=== PATIENT | female | born 1995 | race Caucasian/White ===

== ENCOUNTER 2017-05-18 15:53 | Emergency (ER) | payer OTHER ==
[2017-05-18] MEDS ORDERED: PENICILLIN V POTASSIUM 250 MG TABLET PO ONE (16:33)
[2017-05-18] MEDS ORDERED: KETOROLAC TROMETHAMINE 30 MG/ML VIAL ONE (16:33)
--- NOTE | 2017-05-18 17:02 | ER NURSING DOCUMENTATION ---
Nurse's Notes [facility] Name:Sravani Demarco Age:21 yrs Sex:Female :1995 Arrival Date:05/18/2017 Time:15:53 Bed4 Private MD:No PCP, Identified Diagnosis:Lip Laceration;Epileptic Seizure Presentation: 05/18 15:56 Presenting complaint: Patient states: pt has a seizure and had an uncontrolled fall to st the ground hitting her face and right side. pt complains of chin and right arm pain. Transition of care: patient was not received from another setting of care. 15:56 Acuity: VINICIUS 3 st 15:56 Method Of Arrival: Private Vehicle st Triage Assessment: 15:58 General: Appears uncomfortable, Behavior is agitated, cooperative. Pain: Complains of st pain in right arm and lower mimi border Pain currently is 5 out of 10 on a pain scale. Neuro: Level of Consciousness is awake, alert, Oriented to person, place, time, pt is baseline for her per family.. Cardiovascular: No deficits noted. Respiratory: No deficits noted. GI: No deficits noted. 15:58 Injury Description: Laceration sustained to lower mimi border threw the lip. st Historical: - Allergies: No known drug Allergies; - Home Meds: 1. Keppra Oral 2. Clonidine Oral - PMHx: ADHD; developmentaly delay; SEIZURES; - Tetanus: < 10 years. - Ebola Screening: : Patient denies exposure to infectious person. Patient denies travel to an Ebola-affected area in the 21 days before illness onset. . - Immunization history: Unable to Obtain. Screenin:59 Infectious Disease Risk None. Abuse screen: no reasons for suspicions noted. st Nutritional screening: No deficits noted. Vital Signs: 15:59 BP 138 / 97; Pulse 89; Resp 18; Pulse Ox 96% on R/A; Pain 5/10; st ED Course: 15:54 Patient arrived in ED. ds 15:54 No PCP, Identified is Private Physician. ds 15:56 Sera Monae, RN is Primary Nurse. st 15:[address] 16:00 Valuables Remains with patient Seizure precautions initiated. Seizure pads on bed close st monitoring by staff bedside monitoring initiated. 16:03 Simone Rice MD is Attending Physician. be 16:08 Assist Provider Assist provider with laceration repair using sutures. Set up tray. st Performed by Simone Rice MD. Wound care to laceration was Irrigation Normal Saline. Administered Medications: 16:24 Drug: Bacitracin Ointment (500 unit/g) 1 application; Route: Topical; Site: wound; st 16:24 Drug: Penicillin VK 1000 mg; Route: PO; st 16:24 Drug: Toradol 30 mg; Route: IVP; Site: left hand; st Outcome: 16:24 Discharge ordered by MD. be 16:50 Discharged to home ambulatory. st 16:50 Condition: improved 16:50 Instructed on discharge instructions, follow up and referral plans. medication usage. 17:01 IV D/[place] st 17:01 Patient left the ED. 07 11:29 Discharge F/U Call: Unable to reach: no answer 11:41 Discharge F/U Call: Spoke with: parent of minor. Signatures: Sera Monae RN RN st Srot, Berna, Reg Reg Simone Fisher MD MD be Hofsess, Rachel
--- NOTE | 2017-05-18 17:03 | ER PHYSICIAN DOCUMENTATION ---
Physician Documentation [facility] Name:Sravani Demarco Age:21 yrs Sex:Female :1995 Arrival Date:05/18/2017 Time:15:53 Bed4 Private MD:No PCP, Identified ED Simone You Disposition: 05/18/17 16:24 Discharged to Home/Self Care. Impression: Lip Laceration, Epileptic Seizure. - Condition is Good. - Discharge Instructions: LACERATION, How to Minimize Scar, LACERATION, Lip/Mouth, SEIZURE, Recurrent [Adult]. - Prescriptions for Amoxicillin 500 mg Oral Capsule - take 1 capsule by ORAL route every 8 hours for 10 days; 30 tablet. - Medical Reconciliation form form. - Follow up: Private Physician; When: 4- 6 days; Reason: If symptoms return, Staple/Suture removal. - Problem is new. - Symptoms have improved. HPI: 05/18 16:00 This 21 yrs old Female presents to ER via Private Vehicle with complaints of be Seizure. 16:00 The patient presents after having a single isolated seizure, that lasted 30 second(s). be Character of seizure(s): Motor activity: generalized, shaking all over. Seizure onset: just prior to arrival. Context: the seizure(s) was witnessed, by EMS personnel, by family, brother, father, mother, sister. Seizure Hx: Last seizure: The patient's last seizure was approximately 6 month(s) ago, titrated off Keppra in December, Seizure medications: Lamictal. Associated injury: Head/face: laceration, through and through lower lip laceration. EMS care: none. Current symptoms: confusion. The patient has experienced similar episodes in the past. The patient has been recently seen by a physician: the patient's primary care provider. Historical: - Allergies: No known drug Allergies; - Home Meds: 1. Keppra Oral 2. Clonidine Oral - PMHx: ADHD; developmentaly delay; SEIZURES; - Tetanus: < 10 years. - Ebola Screening: : Patient denies exposure to infectious person. Patient denies travel to an Ebola-affected area in the 21 days before illness onset. . - Immunization history: Unable to Obtain. ROS: 16:00 ENT: Positive for injury or acute deformity, laceration, of the lower mimi border.be 16:00 Neuro: Positive for altered mental status, seizure activity, Negative for headache, speech changes, tingling, weakness, acute changes. 16:00 All other systems are negative. Exam: 16:00 Constitutional: This is a well developed, well nourished patient who is awake, alert, be and in mild distress. Head/Face: Normocephalic, obvious through-through lower lip laceration Eyes: Pupils equal round and reactive to light, extra-ocular motions intact. Lids and lashes normal. Conjunctiva and sclera are non-icteric and not injected. Cornea within normal limits. Periorbital areas with no swelling, redness, or edema. ENT: Nares patent. No nasal discharge, no septal abnormalities noted. Tympanic membranes are normal and external auditory canals are clear. Oropharynx with no redness, swelling, or masses, exudates, or evidence of obstruction, uvula midline. Mucous membranes moist. Neck: Trachea midline, no thyromegaly or masses palpated, and no cervical lymphadenopathy. Supple, full range of motion without nuchal rigidity, or vertebral point tenderness. No Meningismus. Chest/axilla: Normal chest wall appearance and motion. Nontender with no deformity. No lesions are appreciated. Cardiovascular: Regular rate and rhythm with a normal S1 and S2. No gallops, murmurs, or rubs. Normal PMI, no JVD. No pulse deficits. Respiratory: Lungs have equal breath sounds bilaterally, clear to auscultation and percussion. No rales, rhonchi or wheezes noted. No increased work of breathing, no retractions or nasal flaring. Abdomen/GI: Soft, non-tender, with normal bowel sounds. No distension or tympany. No guarding or rebound. No evidence of tenderness throughout. 16:00 MS/ Extremity: Pulses equal, no cyanosis. Neurovascular intact. Full, normal range be of motion. 16:00 Neuro: Motor: is normal, no acute changes, moves all fours. 16:00 Psych: Exam negative for static encephalopathy, unchanged from baseline. Vital Signs: 15:59 BP 138 / 97; Pulse 89; Resp 18; Pulse Ox 96% on R/A; Pain 5/10; st Laceration: 16:00 Wound Repair of 5cm ( 2.0in ) subcutaneous laceration to lower mimi border. be Irregularly shaped.. through-through lower lip laceration, stellate shaped w/o FB, dentition intact.. Distal neuro/vascular/tendon intact. Anesthesia: Local anesthetic administered with 5 mls of 1% lidocaine. Wound prep: Simple cleansing with betadine, Wound explored moderately, Copious irrigation. Skin closed with 3 and 4-0 vicyrl mucousal x5 Prolene using Interrupted sutures. Dressed with Bacitracin, bandaid. Patient tolerated well. MDM: 16:00 Differential diagnosis: seizure. Neurological re-evaluation: normal neurological exam be including cranial nerves, orientation, mentation, motor and sensory exam, cerebellar testing, GCS normal, and normal gait. Data reviewed: vital signs, nurses notes, EMS record, and as a result, I will discharge patient, administer antibiotics penVK. 16:03 Patient medically screened. be Dispensed Medications: 16:24 Drug: Bacitracin Ointment (500 unit/g) 1 application; Route: Topical; Site: wound; st 16:24 Drug: Penicillin VK 1000 mg; Route: PO; st 16:24 Drug: Toradol 30 mg; Route: IVP; Site: left hand; st Signatures: Sera Monae, RN RN Simone Betts MD MD be
== END 2017-05-18 17:02 | disposition home or self-care (01) ==
LOC: ER 15:53
DX: G40.309 Generalized idiopathic epilepsy and epileptic syndromes, not intractable, without status epilepticus (principal); S01.511A Laceration without foreign body of lip, initial encounter; W19.XXXA Unspecified fall, initial encounter; Z79.899 Other long term (current) drug therapy; Z74.3 Need for continuous supervision
CPT/HCPCS: 12013; 96374; 99283; A0425; A0427; J1885